=== PATIENT | female | born 1970 | race Caucasian/White ===

== ENCOUNTER 2020-10-20 08:03 | Outpatient (REF) | payer BC, SELFPAY ==
--- NOTE | ~2020-10-20 | US_ITS ---
EXAMINATION: US ABDOMEN COMPLETE CLINICAL INFORMATION: Epigastric pain. COMPARISON: None TECHNIQUE: Real-time imaging of the abdominal viscera. FINDINGS: PANCREAS: No abnormal mass or peripancreatic inflammatory change. ABDOMINAL AORTA: The proximal, mid, and distal segments are normal in caliber. INFERIOR VENA CAVA: Visualized portions are normal. LIVER: The liver contour is normal. Parenchymal echogenicity is normal. No focal hepatic lesion. There is no intrahepatic biliary duct dilatation seen. GALLBLADDER: Normal. The gallbladder is physiologically distended without evidence of stones, sludge, polyps, wall thickening or pericholecystic fluid. COMMON BILE DUCT: Normal in caliber measuring 0.5 cm in diameter. RIGHT KIDNEY: Normal. No hydronephrosis. No renal calculi or focal parenchymal lesions. The kidney measures 10.3 cm in maximum dimension. LEFT KIDNEY: Normal. No hydronephrosis. No renal calculi or focal parenchymal lesions. The kidney measures 10.7 cm in maximum dimension. SPLEEN: Normal. The spleen measures 9.1 cm in maximum dimension. FREE FLUID: None. US/US abdomen complete IMPRESSION: No significant abnormality identified on abdominal ultrasound study.
== END 2020-10-20 08:04 | disposition home or self-care (01) ==
LOC: HO.US 08:03
PROVIDERS: PCP Family Medicine; Visit Provider Internal Medicine
DX: R10.13 Epigastric pain (principal); R68.81 Early satiety
CPT/HCPCS: 76700

== ENCOUNTER → 2020-11-28 07:57 | Outpatient (REF) | payer BC, SELFPAY ==
--- NOTE | ~2020-11-28 | NM_ITS ---
EXAMINATION: NM RADIONUCLIDE SOLID FOOD GASTRIC EMPTYING 4-HOUR STUDY CLINICAL INFORMATION: Early satiety. COMPARISON: No previous gastric emptying study is available for comparison. TECHNIQUE: A standard meal consisting of 4 oz of Egg Beaters brand tagged with 650 microcuries Tc-99m Sulfur Colloid, 8 oz water and 2 slices of toast with jelly was administered orally to the patient. Images were obtained using a dual head gamma camera in the anterior and posterior projections over of the stomach immediately post ingestion and at hourly intervals up to 3 hours post ingestion. Images were not obtained at 4 hours due to the minimal retention at 3 hours. The anterior and posterior counts at each time interval were averaged using the geometric mean and expressed as percentage of the immediate post ingestion counts. FINDINGS: There is good visualization of activity in the stomach immediately post ingestion. As the study progresses, there is good clearance of activity from the stomach and visualization of progressively increasing small bowel activity. By the end of the study, there is almost no retention noted in the stomach. Retention in the stomach at each time interval was: 1 hour 73% (normal 37%-90%) 2 hours 22% (normal 30%-60%) 3 hours 9% 4 hours (Not Obtained) (normal 0%-10%) NM/NM gastric emptying study IMPRESSION: Normal solid food gastric emptying study.
== END ==
LOC: HO.NUCMED 07:57
PROVIDERS: Visit Provider Internal Medicine
DX: R68.81 Early satiety (principal)
CPT/HCPCS: 78264; A9541

== ENCOUNTER 2020-12-02 07:18 | Day surgery (SDC) | payer BC, SELFPAY ==
--- NOTE | 2020-12-01 09:39 | P.CONAN_ITS ---
Documented by User: Soumya Lai NP 12/01/20 09:40 HPI - Anesthesia Eval Consult details Narrative: 49yo F for Upper Endoscopy [facility] Past Medical History Medical History Hypothyroid IBS (irritable bowel syndrome) Iron deficiency Surgical History Surgical History Hx of colonoscopy Hx of endoscopy Social History Social History Patient Tobacco Use Status: Never used Tobacco Second Hand Smoke Exposure: No Use of substances other than those prescribed or required for medical reasons: No Are you DNR?: No Advance Directives: No Advance Directives Information Provided: Yes Advance Directives on File: No Meds Allergies Allergy/AdvReac Type Severity Reaction Status Date / Time clindamycin Allergy Inflammatio Verified 11/28/20 16:05 n dexamethasone [From TobraDex] Allergy Unknown Verified 11/28/20 16:09 tobramycin [From TobraDex] Allergy Unknown Verified 11/28/20 16:09 penicillin G AdvReac Diarrhea Verified 11/28/20 16:05 Home Medications Medication Instructions Recorded Confirmed Last Taken Type ferrous sulfate 325 mg (65 mg 325 mg PO DAILY 11/28/20 11/28/20 Unknown History iron) tablet (iron) levothyroxine 125 mcg tablet 1 tab PO DAILY 11/28/20 11/28/20 Unknown History (Synthroid) Exam Exam Date and Time: December 01, [id number] Assessment and Plan Assessment Anesthesia Assessment: Chart Reviewed Documented by User: Monika Jackson MD 12/02/20 08:27 [facility] Past Medical History Medical History Hypothyroid IBS (irritable bowel syndrome) Iron deficiency Family History Family history of problems with anesthesia: No Surgical History Surgical History Hx of colonoscopy Hx of endoscopy History of Problems with Anesthesia: No Social History Social History Patient Tobacco Use Status: Never used Tobacco Second Hand Smoke Exposure: No Use of substances other than those prescribed or required for medical reasons: No Are you DNR?: No Advance Directives: No Advance Directives Information Provided: Yes Advance Directives on File: No Meds Allergies Allergy/AdvReac Type Severity Reaction Status Date / Time clindamycin Allergy Inflammatio Verified 11/28/20 16:05 n dexamethasone [From TobraDex] Allergy Unknown Verified 11/28/20 16:09 tobramycin [From TobraDex] Allergy Unknown Verified 11/28/20 16:09 penicillin G AdvReac Diarrhea Verified 11/28/20 16:05 Home Medications Medication Instructions Recorded Confirmed Last Taken Type ferrous sulfate 325 mg (65 mg 325 mg PO DAILY 11/28/20 11/28/20 Unknown History iron) tablet (iron) levothyroxine 125 mcg tablet 1 tab PO DAILY 11/28/20 11/28/20 Unknown History (Synthroid) Exam Height,Weight and Vital Signs: Height 5 ft 3 in Weight 53.977 kg Vital Signs Temp Pulse Resp BP Pulse Ox 12/02/20 07:53 96.9 F 56 16 116/73 100 Airway Mallampati Class: II TM Dist: >3cm Neck ROM: Full Loose/Missing/Broken Teeth: No (Permanent bridge teeth 7&10. Concerned about intubation as teeth are delicate. Informed plan not for intubation but informed staff in room re- bite block) Heart: RRR Lungs: CTAB Assessment and Plan Assessment Anesthesia Assessment: Anesthesia Plan Discussed Final Anesthetic Review Family History of Problems with Anesthesia: No History of Problems with Anesthesia: No NPO: Yes ASA Class: II Final Preanesthetic Review: No Changes in Pt Med Stat, Meds/Allgs Chart Reviewed, Consent Obtained/Reviewed and Anes Risks/Benef Reviewed Patient Risk: Low Procedure Risk: Low Assessment/Block/Sedation in SS: Assess/Block/Sedation- Anesthetic Plan Anesthetic Plan: MAC: Disposition: Standard PACU
--- NOTE | 2020-12-01 13:34 | PC.NURSE ---
Preop called made to pt. while giving pre op instructions patient notified Sara Miranda, her is a teacher and recently was exposed to a covid + patient. was masked and vaccinated but did not state was tested. patient herself was not tested. Dr. Hernandez and Dr. Slater notified of above. per Dr. Slater request patient to be covid tested upon arrival for procedure tomorrow 12/02/20.
[2020-12-02 07:42] VITALS: BMI 21.0
[2020-12-02 07:42] LABS: UPreg QC Valid YES; Urine Pregnancy NEGATIVE (NEGATIVE)
[2020-12-02 07:53] VITALS: BP 116/73; PULSE 56; RESP 16; TEMP 36.1; O2SAT 100
[2020-12-02 07:53] LABS: COVID-19 Test Negative (Negative); IDNOW Serial# 55D5AD1C
[2020-12-02] MEDS: Lactated Ringers 1,000 ML 100 ML IVCONT (08:02)
[2020-12-02 08:58] VITALS: BP 89/53; PULSE 51; RESP 17; TEMP 36.7; O2SAT 100
--- NOTE | 2020-12-02 09:01 | PM.OP ---
Brief Operative Note Date of Service: 12/02/20 Pre-op diagnosis: Abdominal pain Post-op diagnosis: other (Erosive gastritis, Gastric polyps, Hiatal hernia) Procedure: EGD with biopsies Surgeon: Zacarias Slater Anesthesia: MAC Was an Type Casting Machine Operator used for this Procedure?: No Estimated blood loss (mL): 3.0 Pathology: other (A. Descending duodenum B. Gastric antrum C. Gastric polyps D. Proximal stomach) Condition: stable Disposition: PACU
[2020-12-02 09:13] VITALS: BP 102/60; PULSE 58; RESP 18; TEMP 36.7; O2SAT 99
--- NOTE | 2020-12-02 09:41 | OP_ITS ---
SURGEON: Zacarias Slater MD INDICATIONS: The patient presents for evaluation of abdominal discomfort. Full consent has been obtained from her for this, including risks of bleeding and perforation. PREOPERATIVE DIAGNOSIS: Abdominal discomfort. POSTOPERATIVE DIAGNOSIS: Abdominal discomfort, small hiatal hernia, proximal gastritis, proximal gastric polyps, rule out celiac disease, rule out Helicobacter pylori. PROCEDURE PERFORMED: Esophagogastroduodenoscopy with biopsy. ESTIMATED BLOOD LOSS: COMPLICATIONS: ANESTHESIA: Monitored anesthesia care. ASSISTANTS: SPECIMENS: DESCRIPTION OF PROCEDURE: The patient was placed in the left lateral decubitus position. The Olympus video gastroscope was passed in the posterior oropharynx and upper esophagus under direct vision. The scope was passed slowly into the distal esophagus. The gastroesophageal junction appeared normal at 35 cm. There was no sign of any esophagitis or Estevez's esophagus. The scope entered the stomach. There was a small hiatal hernia. The scope was advanced to the pylorus and the duodenum was cannulated in the descending portion. The duodenum including the bulb appeared normal without mass or ulceration. Biopsies were obtained from the descending duodenum. The scope was withdrawn back to the stomach. The gastric antrum and body appeared normal with good peristalsis. Both in the forward viewing and retroflexed position, there was evidence of proximal gastritis with some 10 mm erosions. There was some coffee-ground material as well. There were 2 hyperplastic appearing gastric polyps in the proximal stomach as well. I obtained biopsies from the gastric antrum, the proximal stomach, and from the 2 gastric polyps. The scope was then withdrawn back to the esophagus. The esophageal mucosa appeared normal. The scope was withdrawn from the patient. She tolerated the procedure well and was returned to recovery area in stable condition. IMPRESSION: 1. Proximal erosive gastritis. 2. Small gastric polyps. 3. Rule out Helicobacter pylori. 4. Rule out celiac disease. 5. Small hiatal hernia. PLAN: The results of the biopsy will be checked. She will be given a prescription to use omeprazole 20 mg daily. If Helicobacter pylori is present in the gastric biopsies, we would consider treating that as well. Recent workup with a nuclear medicine gastric emptying study, abdominal ultrasound, and laboratories were all unremarkable. She was advised to see me in 2 to 3 months for a followup visit. This has been discussed with her . She was advised not to use any aspirin and NSAIDs long-term. MD CINDY Ross/BRIANA / [id number]
== END 2020-12-02 09:50 | disposition home or self-care (01) ==
PROVIDERS: Anesthesiology; Nurse Practitioner; PCP Family Medicine; Visit Provider Internal Medicine
PROC: 0DJ08ZZ Inspection of Upper Intestinal Tract, Via Natural or Artificial Opening Endoscopic (ICD-10-PCS; CPT 43235; principal; 2020-12-02 08:20)
DX: R10.13 Epigastric pain (principal); K29.60 Other gastritis without bleeding; K31.7 Polyp of stomach and duodenum; K44.9 Diaphragmatic hernia without obstruction or gangrene; K58.0 Irritable bowel syndrome with diarrhea; Z20.822 Contact with and (suspected) exposure to COVID-19
CPT/HCPCS: 43239; 36415; 81025; 87635; 88305; 88342

== ENCOUNTER 2021-05-01 09:01 | Outpatient (REF) | payer BC, SELFPAY ==
--- NOTE | ~2021-05-01 | CT_ITS ---
EXAMINATION: CT ANGIOGRAM ABDOMEN CLINICAL INFORMATION: Rule out celiac artery compression. Early satiety and epigastric pain. COMPARISON: Ultrasound 10/20/2020. TECHNIQUE: Multiple axial images were obtained through the abdomen following the administration of 80 mL Omnipaque 350 intravenous contrast. Images were reviewed on a dedicated 3-D workstation. This CT examination was performed using dose optimization techniques as appropriate, variously including the following: *Automated exposure control *Adjustment of mA and/or kV according to patient size (this includes techniques or standardized protocols for targeted exams where dose is matched to indication/reason for exam; i.e. extremities or head) *Use of iterative reconstruction technique DLP: 147 mGy-cm FINDINGS: VASCULAR: The descending thoracic aorta is normal in course and caliber. No evidence of dissection or other acute aortic syndrome. The abdominal aorta is normal in course and caliber. No evidence of dissection or other acute aortic syndrome. The celiac trunk is widely patent. No evidence of stenosis, compression, or poststenotic dilation. There is a normal branching pattern and its branch vessels are well opacified. Superior mesenteric artery is widely patent and well opacified. The aortomesenteric angle is 37 degrees and the aortomesenteric distance is 9 mm. The inferior mesenteric artery is well opacified. There is a single renal artery to each kidney. The renal arteries are well opacified. The iliac bifurcation is unremarkable. The right common iliac artery is mildly ectatic and measures up to 1.2 cm in diameter. The bilateral common, internal, and external iliac arteries are widely patent and well opacified. There is an unremarkable appearance of the venous structures for an arterial phase of contrast. NONVASCULAR: There is minimal linear atelectasis at the left base, otherwise the visualized lung bases are clear. No pleural effusion or pleural nodularity is seen. The imaged heart is unremarkable and there is no pericardial effusion. The liver is at the upper limits of normal for size and overall unremarkable in attenuation and contour. No focal lesions are seen. There is no intrahepatic or extrahepatic duct dilation. The gallbladder is unremarkable. Pancreas is unremarkable. Mildly heterogeneous enhancement of the spleen secondary to arterial phase of contrast. The spleen is otherwise unremarkable. Normal appearance of the adrenal glands. The kidneys are normal in size, shape and overall enhancement. No focal lesions, calculi, or hydronephrosis. No hydroureter. Distal esophagus and stomach are unremarkable. The imaged small and large bowel are normal in caliber. No bowel wall inflammatory changes are seen. Appendix is not visualized. No right lower quadrant inflammatory changes. No free intraperitoneal fluid. No significant hernia of the abdominal wall. No abdominopelvic or retroperitoneal lymphadenopathy. No acute or aggressive bony abnormality is seen. CT/CT angio abdomen IMPRESSION: Patent visualized abdominal arterial vasculature. There is no evidence of compression/stenosis of the celiac artery which is normal in caliber. The aortomesenteric angle and aortomesenteric distance are within normal limits. Mildly ectatic right common iliac artery measures up to 1.2 cm. Fleischner guidelines were followed.
[2021-05-01] MEDS: iohexoL 350 MG/ML 100 ML INFUS..BTL IV (09:30)
== END 2021-05-01 09:02 | disposition home or self-care (01) ==
LOC: HO.CT 09:01
PROVIDERS: PCP Family Medicine; Visit Provider Internal Medicine
DX: R10.13 Epigastric pain (principal); R68.81 Early satiety
CPT/HCPCS: 74175; Q9967

== ENCOUNTER 2022-10-31 09:25 | Emergency (ER) | payer OTHER, SELFPAY ==
--- NOTE | ~2022-10-31 | CT_ITS ---
EXAMINATION: CT HEAD WITHOUT CONTRAST CLINICAL INFORMATION: Bilateral hand tingling COMPARISON: None available. TECHNIQUE: Contiguous axial imaging was performed from the skull base to vertex without intravenous administration of contrast. This CT examination was performed using dose optimization techniques as appropriate, variously including the following: *Automated exposure control *Adjustment of mA and/or kV according to patient size (this includes techniques or standardized protocols for targeted exams where dose is matched to indication/reason for exam; i.e. extremities or head) *Use of iterative reconstruction technique DLP: 568 mGy-cm FINDINGS: Sulci and ventricles appear normal. There is no intra or extra-axial fluid collection or hemorrhage, mass, or mass effect. Calvarium is intact. CT/CT head/brain wo IV con IMPRESSION: No acute intracranial pathology.
--- NOTE | ~2022-10-31 | CT_ITS ---
EXAMINATION: CT CERVICAL SPINE WITHOUT CONTRAST CLINICAL INFORMATION: Bilateral hand tingling. COMPARISON: None available. TECHNIQUE: Multiple axial images of the cervical spine were obtained without the administration of intravenous contrast. Coronal and sagittal reformatted images were obtained. This CT examination was performed using dose optimization techniques as appropriate, variously including the following: *Automated exposure control *Adjustment of mA and/or kV according to patient size (this includes techniques or standardized protocols for targeted exams where dose is matched to indication/reason for exam; i.e. extremities or head) *Use of iterative reconstruction technique DLP: 790 mGy-cm FINDINGS: There is straightening of the normal cervical lordosis with normal spinal alignment. Mild degenerative disc disease is seen at C4-5 and C5-6 with disc space narrowing, mild marginal osteophyte formation and mild bilateral neural foraminal narrowing. The vertebral bodies and odontoid processes are intact. The facet joints are unremarkable. The spinous processes are intact. The transverse processes are intact. The cervical soft tissues are unremarkable. No significant lymphadenopathy. The thyroid gland is unremarkable. The visualized lung apices are unremarkable. CT/CT cervical spine wo IV con IMPRESSION: 1. Straightening of the normal cervical lordosis may be secondary to positioning and/or muscle spasm. 2. Mild C4-5 and C5-6 degenerative disc disease without acute abnormality.
[2022-10-31 09:39] VITALS: BP 123/71; PULSE 51; RESP 17; TEMP 35.6; O2SAT 100; BMI 22.6
--- NOTE | 2022-10-31 09:47 | ECG_ITS ---
Test Reason : numbness in left arm/hand Blood Pressure : / mmHG Vent. Rate : 055 BPM Atrial Rate : 055 BPM P-R Int : 098 ms QRS Dur : 080 ms QT Int : 418 ms P-R-T Axes : 000 057 053 degrees QTc Int : 399 ms Sinus bradycardia with short AK Otherwise normal ECG No previous ECGs available Referred By: Generic ED Physician Electronically Signed By:RODRI QUINN
[2022-10-31 09:59] LABS: MANUAL DIFF FLAG NO
--- NOTE | 2022-10-31 10:02 | PC.NURSE ---
NEURO'S WITHIN NORMAL LIMITS.
[2022-10-31 10:04] LABS: Basophils Percent Auto 0.5 % (0-2); Eosinophils Absolute Auto 0.1 X10*3/uL (0.0-0.4); Eosinophils Percent Auto 1.1 % (0-4); Hematocrit 39.5 % (37.0-47.0); Hemoglobin 12.7 g/dl (12.0-16.0); Imm Gran Abs Auto 0.01 X10*3/uL (0.00-0.03); Imm Gran Pct Auto 0.2 % (0.0-0.4); Lymphocytes Absolute Auto 1.6 X10*3/uL (1.2-4.9); Lymphocytes Percent Auto 27.9 % (20-40); Mean Corpuscular HGB Conc 32.2 g/dl (31.0-35.0); Mean Corpuscular Hemoglobin 30.5 pg (27.0-33.0); Mean Platelet Volume 13.3 fL (9.4-12.3); Monocytes Absolute Auto 0.4 X10*3/uL (0.1-1.2); Monocytes Percent Auto 7.9 % (2-11); Neutrophils Absolute Auto 3.5 x10*3/uL (2.0-8.3); Neutrophils Percent Auto 62.4 % (45-73); Platelet Count 134 X10*3/uL (160-400); Red Blood Count 4.16 X10*6/uL (4.20-5.50); Red Cell Distribution Width 12.6 % (11.0-16.0); White Blood Count 5.6 X10*3/uL (4.8-10.8)
[2022-10-31 10:19] LABS: Anion Gap 14 (12-20); Blood Urea Nitrogen 15 mg/dL (9-16); Calcium 9.7 mg/dL (8.4-10.2); Carbon Dioxide 24 mmol/L (22-29); Chloride 110 mmol/L (96-108); Creatinine Clr Calc Pharmacy 68.8; Estimated Glomerular Filt Rate > 60; Glucose Random 87 mg/dL (60-115); Potassium 3.9 mmol/L (3.3-5.1); Sodium 144 mmol/L (135-145)
[2022-10-31 10:29] LABS: Troponin-I High Sensitivity < 2.7 ng/L (<3.5-17.0)
--- NOTE | 2022-10-31 13:46 | ED_ITS ---
HPI - Neuro Symptoms/Deficit General Chief Complaint: Neuro Symptoms/Deficit Stated Complaint: tingling, numb hand Time Seen by Provider: 10/31/22 13:37 Source: patient, RN notes reviewed and old records reviewed Mode of arrival: ambulatory History of Present Illness HPI Narrative: 51-year-old female with a past medical history of iron deficiency, IBS, hypothyroid, presenting to the ED complaining of numbness /tingling to right 4th-5th digits since waking yesterday which progressed to left 1st-2nd digits with radiation up LUE today upon waking. Sx have improved since onset. Describes paresthesias today as left arm feeling different than contralateral side. admits to a lot of computer work/typing at work. Denies headache, neck /back pain, vision change/ loss, weakness, CP/SOB. Denies taking anticoagulation Onset (ago): day(s) Related Data Home Medications Medication Instructions Recorded Confirmed ferrous sulfate 325 mg (65 mg 325 mg PO DAILY 11/28/20 11/28/20 iron) tablet (iron) levothyroxine 125 mcg tablet 1 tab PO DAILY 11/28/20 11/28/20 (Synthroid) Allergies Allergy/AdvReac Type Severity Reaction Status Date / Time clindamycin Allergy Inflammatio Verified 11/28/20 16:05 n dexamethasone [From TobraDex] Allergy Unknown Verified 11/28/20 16:09 tobramycin [From TobraDex] Allergy Unknown Verified 11/28/20 16:09 penicillin G AdvReac Diarrhea Verified 11/28/20 16:05 Review of Systems Review of Systems: Constitutional: No Fever, No Chills, No Fatigue, No Malaise ENT/Mouth: No Ear Pain, No Nasal Congestion, No sore throat, No Rhinorrhea, No Swallowing Difficulty Eyes: No Eye Pain, No Swelling, No Redness, No Vision Changes Cardiovascular: No Chest Pain, No SOB, No Edema, No Palpitations Respiratory: No Cough, No Sputum, No Dyspnea Gastrointestinal: No Nausea, No Vomiting, No Abdominal pain Musculoskeletal: No joint pain, No Myalgias, No Joint Swelling Skin: No Skin Lesions, No rash Neuro: No Weakness, + Numbness, + Paresthesias, No Loss of Consciousness, No Dizziness, No Headache Yes all other systems are reviewed and are negative Constitutional: Constitutional: Reports as per HPI Neurologic: Denies Sensory deficit (Neuro) PMFSH Past Medical History Attestation statement: The following information was validated with the patient. Source: old records reviewed Medical History Hypothyroid IBS (irritable bowel syndrome) Iron deficiency Surgical History Hx of colonoscopy Hx of endoscopy Social History Social History Patient Tobacco Use Status: Never used Tobacco Second Hand Smoke Exposure: No Advance Directives: No Physical Exam Vital Signs: Vital Signs: Last Vital Signs Temp 96.0 F L 10/31/22 09:39 Pulse 51 10/31/22 15:40 Resp 18 10/31/22 15:40 BP 121/79 10/31/22 15:40 Pulse Ox 99 10/31/22 15:40 O2 Del Method Room Air 10/31/22 15:40 BMI result Body Mass Index 22.6 Const: General: cooperative, healthy appearing, no acute distress, alert and awake Orientation/consciousness: patient oriented x3 Limitations: no limitations HEENT: Head: Yes normal to inspection and Yes atraumatic Ears: hearing grossly normal bilaterally General nose exam: Normal external nose present Face and sinus: Yes normal facial exam Throat: Yes posterior oropharynx normal, Yes tonsils normal and Yes uvula midline Eyes: General: appearance normal, both eyes and all related structures Pupils: Equal, round and reactive pupils present EOM: EOMs intact bilaterally Neck: Neck: Yes normal visual inspection and Yes no meningeal signs Resp: Effort & Inspection: normal respiratory effort and no respiratory distre ss Auscultation: clear to auscultation bilaterally Cardio: Rate: regular rate Heart sounds: S1 normal heart sound present and S2 normal heart sound present Peripheral pulses: radial pulses present and ulnar radial pulses present Back/Spine/Pelvis: Other: No midline cervical/thoracic/lumbar spinous tenderness/step-off or deformity Skin: Rashes: no rashes Wounds: no wounds Neuro: General: patient oriented x3, gait normal, tone normal, moves all extr emities, no meningeal signs, no focal motor deficits and CN's II-XI intact bilaterally Cranial nerves: Yes CN's II-XII intact bilaterally and Yes Equal, round and reactive pupils present Cognition (Neuro): normal cognition Gait exam (Neuro): Normal gait present Motor exam (neuro): 5/5 motor strength present throughout, Pronator motor function not present and no tremor noted Sensory Exam: No Sensory deficit (Neuro) Extrem: Other: no appreciable wrist/ hand abnormality/ discoloration, cap refill WNL, neurovascularly intact. Strength intact. + Phalen's sign to LUE. Negative Tinel's sign General: Yes normal to inspection Course Course Course Narrative: - Labs reassuring CT head/brain wo IV con IMPRESSION: No acute intracranial pathology. CT cervical spine wo IV con IMPRESSION: 1.? Straightening of the normal cervical lordosis may be secondary to positioning and/or muscle spasm. 2.? Mild C4-5 and C5-6 degenerative disc disease without acute abnormality. ? > results discussed with patient including recommended follow-up with PCP and Orthopedics. Supplied with wrist splints Medical Decision Making Medical Decision Making [facility] Narrative: 51-year-old female with a past medical history of iron deficiency, IBS, hypothyroid, presenting to the ED complaining of numbness /tingling to right 4th-5th digits since waking yesterday which progressed to left 1st-2nd digits with radiation up LUE today upon waking. on exam vital signs stable, NAD, nontoxic appearing, no midline spinous tenderness throughout, neurovascularly intact, pulses intact to all extremities. No focal neuro deficits or deform ities. Strength intact. NIHSS=0. Concern for carpal tunnel syndrome vs paresthesias/radiculopathy vs cubital tunnel syndrome vs metabolic abnormalities. lower suspicion for cervical dissection, CVA/TIA with bilateral symptoms/intermittent. lower suspicion for ACS. No evidence of infection or compartment syndrome plan: EKG, Labs, head/ C-spine CT Please refer to course for remaining clinical decision making, interpretation of labs/imaging results, and discussions with consultants and/or family members. Differential Diagnosis Differential Diagnoses: The differential diagnosis associated with the presentation includes As above Admission/Observation Consideration of admission/observation: Escalation of care including admission/observation considered Lab Data [facility] Lab Attestation statement: I reviewed the patient's lab results. 10/31/22 09:52 10/31/22 09:52 Labs: Lab Results 10/31/22 10/31/22 10/31/22 Range/Units 09:52 09:52 09:52 WBC 5.6 (4.8-10.8) X10*3/uL RBC 4.16 L (4.20-5.50) X10*6/uL Hgb 12.7 (12.0-16.0) g/dl Hct 39.5 (37.0-47.0) % MCV 95.0 (80.0-98.0) fL MCH 30.5 (27.0-33.0) pg MCHC 32.2 (31.0-35.0) g/dl RDW 12.6 (11.0-16.0) % Plt Count 134 L (160-400) X10*3/uL MPV 13.3 H (9.4-12.3) fL Immature Gran % (Auto) 0.2 (0.0-0.4) % Neut % (Auto) 62.4 (45-73) % Lymph % (Auto) 27.9 (20-40) % Ogle % (Auto) 7.9 (2-11) % Eos % (Auto) 1.1 (0-4) % Baso % (Auto) 0.5 (0-2) % Lymph # (Auto) 1.6 (1.2-4.9) X10*3/uL Ogle # (Auto) 0.4 (0.1-1.2) X10*3/uL Eos # (Auto) 0.1 (0.0-0.4) X10*3/uL Baso # (Auto) 0.0 (0.0-0.2) X10*3/uL Abs Immat Gran (auto) 0.01 (0.00-0.03) X10*3/uL Absolute Neuts (auto) 3.5 (2.0-8.3) x10*3/uL Absolute Nucleated RBC 0.000 (0.0-0.012) X10*3/uL Nucleated RBC % (auto) 0.0 (0.0-0.2) /100WBC Sodium 144 (135-145) mmol/L Potassium 3.9 (3.3-5.1) mmol/L Chloride 110 H (96-108) mmol/L Carbon Dioxide 24 (22-29) mmol/L Anion Gap 14 (12-20) BUN 15 (9-16) mg/dL Creatinine 0.80 (0.5-1.4) mg/dL Estim Creat Clear Calc 68.8 Estimated GFR > 60 Random Glucose 87 (60-115) mg/dL Calcium 9.7 (8.4-10.2) mg/dL Magnesium 2.3 (1.6-2.6) mg/dL Total Bilirubin 0.3 (0.0-1.0) mg/dL Direct Bilirubin 0.1 (0.0-0.5) mg/dL AST 21 (5-31) U/L ALT 14 (0-31) U/L Alkaline Phosphatase 75 (39-117) U/L Troponin I High Sens < 2.7 (<3.5-17.0) ng/L Total Protein 6.6 (6.5-8.0) g/dL Albumin 4.1 (3.5-5.0) g/dL Vitamin B12 (200-900) pg/mL Folate (> or = 4.0) ng/mL 10/31/22 Range/Units 15:07 WBC (4.8-10.8) X10*3/uL RBC (4.20-5.50) X10*6/uL Hgb (12.0-16.0) g/dl Hct (37.0-47.0) % MCV (80.0-98.0) fL MCH (27.0-33.0) pg MCHC (31.0-35.0) g/dl RDW (11.0-16.0) % Plt Count (160-400) X10*3/uL MPV (9.4-12.3) fL Immature Gran % (Auto) (0.0-0.4) % Neut % (Auto) (45-73) % Lymph % (Auto) (20-40) % Ogle % (Auto) (2-11) % Eos % (Auto) (0-4) % Baso % (Auto) (0-2) % Lymph # (Auto) (1.2-4.9) X10*3/uL Ogle # (Auto) (0.1-1.2) X10*3/uL Eos # (Auto) (0.0-0.4) X10*3/uL Baso # (Auto) (0.0-0.2) X10*3/uL Abs Immat Gran (auto) (0.00-0.03) X10*3/uL Absolute Neuts (auto) (2.0-8.3) x10*3/uL Absolute Nucleated RBC (0.0-0.012) X10*3/uL Nucleated RBC % (auto) (0.0-0.2) /100WBC Sodium (135-145) mmol/L Potassium (3.3-5.1) mmol/L Chloride (96-108) mmol/L Carbon Dioxide (22-29) mmol/L Anion Gap (12-20) BUN (9-16) mg/dL Creatinine (0.5-1.4) mg/dL Estim Creat Clear Calc Estimated GFR Random Glucose (60-115) mg/dL Calcium (8.4-10.2) mg/dL Magnesium (1.6-2.6) mg/dL Total Bilirubin (0.0-1.0) mg/dL Direct Bilirubin (0.0-0.5) mg/dL AST (5-31) U/L ALT (0-31) U/L Alkaline Phosphatase (39-117) U/L Troponin I High Sens (<3.5-17.0) ng/L Total Protein (6.5-8.0) g/dL Albumin (3.5-5.0) g/dL Vitamin B12 588 (200-900) pg/mL Folate 11.1 (> or = 4.0) ng/mL Independent Interpretation I performed an independent interpretation of an: EKG ( EKG sinus bradycardia with short IL at a rate of 55. QRS 80. QTC 399. No previous to compare. No STEMI) Radiology Impression Discussion of test interpretation with radiology: I have reviewed the radiologist's reading. External Record Review External record reviewed: Inpatient record, Office record, Outpatient record, Prior outpatient labs, Prior outpatient radiology, Primary care record and Outside ED record Tests considered The following testing was considered but not selected: As above Discharge Plan Discharge Clinical Impression: Paresthesia, Degenerative cervical disc, Carpal tunnel syndrome Patient Disposition: Home, Self-Care Instructions: Paresthesia (ED), Degenerative Disc Disease (ED) Additional Instructions: your blood work is reassuring. Your CT scan shows some degenerative cervical changes meeting arthritis as well as evidence of spasming which could be related to her symptoms We also suspect you have some carpal tunnel syndrome, wear wrist splints at night Follow-up with her primary care doctor as well as Orthopedics as needed Take Tylenol and Motrin If symptoms persist or worsen, become constant/ unbearable you have weakness return to the ED Prescriptions: No Action ferrous sulfate [iron] 325 mg (65 mg iron) Tablet 325 mg PO DAILY levothyroxine [Synthroid] 125 mcg tablet 1 tab PO DAILY Referrals: [facility] [place] [facility] [Provider Group] - 10 days Vandana Zavala MD [Primary Care Provider] - 5 days Interventions: ED Discharge Assessment Last Done: 10/31/22 16:17 Discharge Date/Time: 10/31/22 16:18
[2022-10-31 14:17] LABS: Alanine Aminotransferase 14 U/L (0-31); Albumin Level 4.1 g/dL (3.5-5.0); Alkaline Phosphatase 75 U/L (39-117); Aspartate Amino Transferase 21 U/L (5-31); Bilirubin Direct 0.1 mg/dL (0.0-0.5); Bilirubin Total 0.3 mg/dL (0.0-1.0); Magnesium 2.3 mg/dL (1.6-2.6); Total Protein 6.6 g/dL (6.5-8.0)
--- NOTE | 2022-10-31 15:00 | PC.NURSE ---
Patient presents with left arm numbness. Patient is alert and oriented and is able to move arm without issue. Patient states that she has a small headache but is otherwise well appearing.
[2022-10-31 15:40] VITALS: BP 121/79; PULSE 51; RESP 18; O2SAT 99
[2022-10-31 16:18] LABS: Folate 11.1 ng/mL (> or = 4.0); Vitamin B12 588 pg/mL (200-900)
== END 2022-10-31 16:18 | disposition home or self-care (01) ==
PROVIDERS: Physician Assistant; Emergency Provider Emergency Medicine; PCP Family Medicine
DX: M50.320 Other cervical disc degeneration, mid-cervical region, unspecified level (principal); R20.2 Paresthesia of skin; G56.03 Carpal tunnel syndrome, bilateral upper limbs; R51.9 Headache, unspecified; R00.1 Bradycardia, unspecified; Z79.899 Other long term (current) drug therapy
CPT/HCPCS: 36415; 70450; 72125; 80048; 80076; 82607; 82746; 83735; 84484; 85025; 93005; 99284; 99285

== ENCOUNTER → 2022-10-31 09:47 | Outpatient (BNV) | payer OTHER, SELFPAY | PROVIDERS: Emergency Provider Emergency Medicine; PCP Family Medicine; Visit Provider Internal Medicine | DX: R00.1 Bradycardia, unspecified (principal); R20.2 Paresthesia of skin | CPT/HCPCS: 93010 ==

== ENCOUNTER 2023-03-27 10:10 | Outpatient (REF) | payer OTHER, SELFPAY ==
[2023-03-27 10:32] LABS: MANUAL DIFF FLAG NO
[2023-03-27 11:14] LABS: Basophils Percent Auto 0.8 % (0-2); Eosinophils Percent Auto 0.8 % (0-4); Hematocrit 40.8 % (37.0-47.0); Hemoglobin 13.4 g/dl (12.0-16.0); Imm Gran Abs Auto 0.01 X10*3/uL (0.00-0.03); Imm Gran Pct Auto 0.2 % (0.0-0.4); Lymphocytes Absolute Auto 1.1 X10*3/uL (1.2-4.9); Lymphocytes Percent Auto 21.8 % (20-40); Mean Corpuscular HGB Conc 32.8 g/dl (31.0-35.0); Mean Corpuscular Volume 94.4 fL (80.0-98.0); Mean Platelet Volume 13.6 fL (9.4-12.3); Monocytes Absolute Auto 0.5 X10*3/uL (0.1-1.2); Monocytes Percent Auto 9.2 % (2-11); Neutrophils Absolute Auto 3.4 x10*3/uL (2.0-8.3); Neutrophils Percent Auto 67.2 % (45-73); Platelet Count 152 X10*3/uL (160-400); Red Blood Count 4.32 X10*6/uL (4.20-5.50); Red Cell Distribution Width 12.6 % (11.0-16.0)
[2023-03-27 11:47] LABS: Erythrocyte Sedimentation Rate 4 MM/HR (0-20)
[2023-03-27 11:50] LABS: Alanine Aminotransferase 15 U/L (0-31); Albumin Level 4.3 g/dL (3.5-5.0); Alkaline Phosphatase 96 U/L (39-117); Anion Gap 10 (12-20); Aspartate Amino Transferase 24 U/L (5-31); Bilirubin Direct 0.1 mg/dL (0.0-0.5); Bilirubin Total 0.4 mg/dL (0.0-1.0); Blood Urea Nitrogen 19 mg/dL (9-16); C Reactive Protein 0.24 mg/dL (< or = 0.50); Calcium 9.9 mg/dL (8.4-10.2); Carbon Dioxide 28 mmol/L (22-29); Chloride 108 mmol/L (96-108); Estimated Glomerular Filt Rate > 60; Glucose Random 90 mg/dL (60-115); Potassium 4.4 mmol/L (3.3-5.1); Sodium 142 mmol/L (135-145)
== END 2023-03-27 10:11 | disposition home or self-care (01) ==
LOC: HO.LAB 10:10
PROVIDERS: PCP Family Medicine; Visit Provider Internal Medicine
DX: K62.5 Hemorrhage of anus and rectum (principal); R19.7 Diarrhea, unspecified
CPT/HCPCS: 36415; 80048; 80076; 85025; 85652; 86140

== ENCOUNTER 2023-04-26 08:22 | Outpatient (REF) | payer OTHER, SELFPAY ==
[2023-04-26 09:30] LABS: Leukocytes Stool Qualitative NEGATIVE (NEGATIVE)
[2023-04-26 10:47] LABS: CDiff Gene PCR NEGATIVE (Negative)
[2023-04-26 11:47] LABS: Adenovirus F 40/41 Not Detected (Not Detect.); Astrovirus Not Detected (Not Detect.); Campylobacter Not Detected (Not Detect.); Cryptosporidium Not Detected (Not Detect.); Cyclospora cayetanensis Not Detected (Not Detect.); E. coli EAEC Not Detected (Not Detect.); E. coli EPEC Not Detected (Not Detect.); E. coli ETEC Not Detected (Not Detect.); E. coli STEC Not Detected (Not Detect.); Entamoeba histolytica Not Detected (Not Detect.); Giardia lamblia Not Detected (Not Detect.); Norovirus GI/GII Not Detected (Not Detect.); Plesiomonas shigelloides Not Detected (Not Detect.); Rotavirus A Not Detected (Not Detect.); Salmonella Not Detected (Not Detect.); Sapovirus Not Detected (Not Detect.); Shigella sp./EIEC Not Detected (Not Detect.); Vibrio Not Detected (Not Detect.); Vibrio Cholerae Not Detected (Not Detect.); Yersinia enterocolitica Not Detected (Not Detect.)
[2023-05-02 01:19] LABS: Calprotectin, Fecal 5 mcg/g
== END 2023-04-26 08:23 | disposition home or self-care (01) ==
LOC: HO.LNP 08:22
PROVIDERS: Visit Provider Internal Medicine
DX: K62.5 Hemorrhage of anus and rectum (principal); R19.7 Diarrhea, unspecified
CPT/HCPCS: 83993; 87493; 87507; 89055

== ENCOUNTER 2023-07-26 09:30 | Day surgery (SDC) | payer OTHER, SELFPAY ==
[2023-07-25 07:14] VITALS: BMI 21.4
--- NOTE | 2023-07-25 10:49 | HO.ANESPROP2 ---
HPI - Anesthesia Eval Consult details Narrative: 52yo F for Colonoscopy PMFSH Past Medical History Medical History (Updated 07/26/23 @ 10:37 by Shameka Sandoval, RN) Menopause Hiatal hernia Hypothyroid Iron deficiency IBS (irritable bowel syndrome) Family History Family history of problems with anesthesia: No Surgical History Surgical History Hx of endoscopy Hx of colonoscopy History of Problems with Anesthesia: No Social History Social History Alcohol intake: never Patient Tobacco Use Status: Never used Tobacco Second Hand Smoke Exposure: No Are you DNR?: No Advance Directives: No Advance Directives Information Provided: Yes Nutrition Risks: No Nutritional Risk Patient : No FDLMP: 5 years ago Meds Allergies Allergy/AdvReac Type Severity Reaction Status Date / Time clindamycin Allergy Inflammatio Verified 07/26/23 10:11 n dexamethasone [From TobraDex] Allergy Unknown Verified 07/26/23 10:11 Iodinated Contrast Media Allergy Unknown Verified 07/26/23 10:11 [Contrast Dye] tobramycin [From TobraDex] Allergy Unknown Verified 07/26/23 10:11 penicillin G AdvReac Diarrhea Verified 07/26/23 10:11 Home Medications ?Medication ?Instructions ?Recorded ?Confirmed ?Last Taken ?Type levothyroxine 125 mcg tablet 1 tab PO DAILY 11/28/20 07/25/23 12/02/20 History (Synthroid) Exam Height,Weight and Vital Signs: Height 5 ft 3 in Weight 54.885 kg Assessment and Plan Assessment Anesthesia Assessment: Chart Reviewed Final Anesthetic Review Family History of Problems with Anesthesia: No History of Problems with Anesthesia: No
[2023-07-26 09:54] VITALS: BMI 21.4
[2023-07-26] MEDS: Lactated Ringers 1,000 ML 100 ML IVCONT (10:04)
--- NOTE | 2023-07-26 10:09 | HO.ANESPROP2 ---
[facility] Past Medical History Medical History Hiatal hernia Hypothyroid Iron deficiency IBS (irritable bowel syndrome) Functional capacity: independent ambulation Patient : No Family History Family history of problems with anesthesia: No Surgical History Surgical History Hx of endoscopy Hx of colonoscopy History of Problems with Anesthesia: No Social History Social History Alcohol intake: never Patient Tobacco Use Status: Never used Tobacco Second Hand Smoke Exposure: No Are you DNR?: No Advance Directives: No Advance Directives Information Provided: Yes Nutrition Risks: No Nutritional Risk FDLMP: 5 years ago Meds Allergies Allergy/AdvReac Type Severity Reaction Status Date / Time clindamycin Allergy Inflammatio Verified 11/28/20 16:05 n dexamethasone [From TobraDex] Allergy Unknown Verified 11/28/20 16:09 Iodinated Contrast Media Allergy Unknown Verified 07/25/23 07:12 [Contrast Dye] tobramycin [From TobraDex] Allergy Unknown Verified 11/28/20 16:09 penicillin G AdvReac Diarrhea Verified 11/28/20 16:05 Active Medications: Current Medications Lactated Ringer's (Lr) 1,000 mls @ 100 mls/hr IVCONT .Q10H QIAN Last Admin: 07/26/23 10:04 Dose: 100 mls/hr Sodium Biphosphate/Sodium Phosphate (Sodium Phosphate,[place]-Dibasic 133 Ml Enema) 133 ml NE ONCE PRN PRN Reason: Poor Colonoscopy Prep Results Home Medications ?Medication ?Instructions ?Recorded ?Confirmed ?Last Taken ?Type levothyroxine 125 mcg tablet 1 tab PO DAILY 11/28/20 07/25/23 12/02/20 History (Synthroid) Exam Height,Weight and Vital Signs: Height 5 ft 3 in Weight 54.885 kg Airway Mallampati Class: II TM Dist: >3cm Neck ROM: Full Heart: RRR Lungs: CTA Assessment and Plan Assessment Anesthesia Assessment: Anesthesia Plan Discussed Final Anesthetic Review Family History of Problems with Anesthesia: No History of Problems with Anesthesia: No NPO: Yes ASA Class: II Final Preanesthetic Review: Meds/Allgs Chart Reviewed, Consent Obtained/Reviewed and Anes Risks/Benef Reviewed Patient Risk: Low Procedure Risk: Low Anesthetic Plan Anesthetic Plan: MAC: Disposition: Standard PACU
[2023-07-26 10:11] VITALS: BP 117/71; PULSE 58; RESP 18; TEMP 36.7; O2SAT 100
[2023-07-26 11:32] VITALS: BP 102/62; PULSE 52; RESP 16; TEMP 36.4; O2SAT 99
--- NOTE | 2023-07-26 11:32 | P.BOP_ITS ---
Brief Operative Note Date of Service: 07/26/23 Pre-op diagnosis: Rectal bleeding, diarrhea Post-op diagnosis: other (Internal hemorrhoids) Procedure: Colonoscopy to the cecum and TI with biopsies Surgeon: Zacarias Slater MD Anesthesia: MAC Was an [employer] used for this Procedure?: No Estimated blood loss (mL): 2.0 Pathology: other (A. Ascending colon B. Terminal ileum C. Descending colon) Condition: stable Disposition: PACU
[2023-07-26 11:47] VITALS: BP 102/62; PULSE 50; RESP 16; O2SAT 99
--- NOTE | 2023-07-26 11:51 | OP_ITS ---
DATE OF SERVICE: 07/26/2023 SURGEON: Zacarias Slater MD INDICATIONS: The patient presents for evaluation of intermittent hematochezia and diarrhea. Full consent has been obtained from her for this, including risks of bleeding and perforation. PREOPERATIVE DIAGNOSIS: POSTOPERATIVE DIAGNOSIS: PROCEDURE PERFORMED: Colonoscopy to the cecum and terminal ileum with biopsies. ESTIMATED BLOOD LOSS: COMPLICATIONS: ANESTHESIA: Monitored anesthesia care. ASSISTANTS: SPECIMENS: PREOPERATIVE DIAGNOSES: Diarrhea and hematochezia. POSTOPERATIVE DIAGNOSES: Diarrhea, hematochezia, internal hemorrhoids, and rule out microscopic colitis. DESCRIPTION OF PROCEDURE: The patient was placed in the left lateral decubitus position. The digital rectal exam revealed no abnormalities. The [employer] video pediatric colonoscope was then entered into the rectum and advanced easily to the cecum. Once in the cecum, I did identify normal-appearing cecal pouch with appendiceal orifice and a normal-appearing ileocecal valve. The terminal ileum was cannulated and appeared normal. Biopsies were obtained. There was no sign of any ileitis. The scope was withdrawn back in the colon. The entire cecum and ileocecal valve appeared normal. The scope was slowly withdrawn assessing all mucosal surfaces carefully. Preparation was excellent. I did not visualize any sign of polyps, colitis, nor angiodysplasia. Random biopsies were obtained in the ascending and descending colon. I did not appreciate any significant diverticular disease. In the rectum, the scope was retroflexed visualizing internal hemorrhoids, but no other pathology. The rectal mucosa appeared normal. The scope was straightened and withdrawn from the patient. She tolerated the procedure well and was returned to the recovery area in stable condition. IMPRESSION: 1. Internal hemorrhoids. 2. Rule out microscopic colitis. PLAN: The results of the biopsies will be checked. She did try cholestyramine recently and that did not help her, so she subsequently stopped it. She did try to titrate the dose, but without much benefit. At this point, I advised her to try using some Imodium regularly on a daily basis each morning and later in the day to try to prevent diarrhea as opposed to just using the Imodium p.r.n. She will see me in the Fall for a followup visit. She was advised not to use any aspirin and NSAIDs for 1 week. She was advised to have a repeat screening colonoscopy in 10 years. MD CINDY Ross/BRIANA / [id number]
[2023-07-26 12:02] VITALS: BP 114/73; PULSE 48; RESP 16; TEMP 36.1; O2SAT 100
== END 2023-07-26 12:40 | disposition home or self-care (01) ==
PROVIDERS: PCP Family Medicine; Visit Provider Internal Medicine
PROC: 0DJD8ZZ Inspection of Lower Intestinal Tract, Via Natural or Artificial Opening Endoscopic (ICD-10-PCS; CPT 45378; principal; 2023-07-26 11:10)
DX: K62.5 Hemorrhage of anus and rectum (principal); K58.0 Irritable bowel syndrome with diarrhea; K64.8 Other hemorrhoids; E03.9 Hypothyroidism, unspecified; E61.1 Iron deficiency; Z79.899 Other long term (current) drug therapy; Z88.0 Allergy status to penicillin; Z88.1 Allergy status to other antibiotic agents; Z91.041 Radiographic dye allergy status
CPT/HCPCS: 45380; 88305; J2704

== ENCOUNTER 2024-04-13 08:42 | Emergency (ER) | payer OTHER, SELFPAY ==
--- NOTE | ~2024-04-13 | US_ITS ---
EXAMINATION: US ABDOMEN LIMITED CLINICAL INFORMATION: Right upper quadrant pain.. COMPARISON: 10/20/2020. Correlation made with CT angiography of the abdomen 05/01/2021. TECHNIQUE: Real-time imaging of the right upper quadrant abdominal viscera. FINDINGS: PANCREAS: Visualized portions are unremarkable. LIVER: The liver is normal in size. The liver contour is normal. Parenchymal echogenicity is normal. No focal hepatic lesion. There is no intrahepatic biliary duct dilatation seen. GALLBLADDER: The gallbladder is physiologically distended without evidence of stones, sludge, polyps, wall thickening or pericholecystic fluid. Negative sonographic Giron's sign. COMMON BILE DUCT: Normal in caliber measuring 0.5 cm in diameter. RIGHT KIDNEY: No hydronephrosis. No renal calculi or focal parenchymal lesions. The kidney measures 9.4 cm in maximum dimension. FREE FLUID: None. US/US abdomen limited IMPRESSION: Normal right upper quadrant ultrasound. Electronically signed by: Jaswinder Bell MD 04/13/2024 03:32 PM [facility] [place]
--- NOTE | ~2024-04-13 | XR_ITS ---
CLINICAL HISTORY: Pneumonia? 2 view chest x-ray Comparison: None Findings: No consolidation or effusion. Normal size heart. No acute fracture. IMPRESSION: 1. No acute findings. This document has been electronically signed by: Danya Padilla MD on 04/13/2024 17:59:47
[2024-04-13 09:02] VITALS: BP 125/73; PULSE 61; RESP 16; TEMP 36; O2SAT 98; BMI 22.1
--- NOTE | 2024-04-13 14:20 | ED_ITS ---
HPI - General Adult General Chief complaint: Abdominal Pain Stated complaint: R side abd pain Time Seen by Provider: 04/13/24 16:29 Source: patient Mode of arrival: ambulatory Limitations: no limitations History of Present Illness ED Provider: Eddie Pradhan HPI narrative: 53-year-old female history of IBS, hypothyroidism, iron deficiency presents to ED for right upper quadrant abdominal pain for 1 week that is worse on movement of torso and upper extremities. Patient denies any chest pain, shortness of breath, recent trauma, fever, chills, leg swelling, calf pain, or coughing up blood Related Data Home Medications ?Medication ?Instructions ?Recorded ?Confirmed levothyroxine 125 mcg tablet 1 tab PO DAILY 11/28/20 07/25/23 (Synthroid) Previous Rx's ?Medication ?Instructions ?Recorded naproxen 500 mg tablet 500 mg PO BID PRN pain 7 days #14 04/13/24 tabs Allergies Allergy/AdvReac Type Severity Reaction Status Date / Time clindamycin Allergy Inflammatio Verified 04/13/24 09:05 n dexamethasone [From TobraDex] Allergy Unknown Verified 04/13/24 09:05 Iodinated Contrast Media Allergy Unknown Verified 04/13/24 09:05 [Contrast Dye] tobramycin [From TobraDex] Allergy Unknown Verified 04/13/24 09:05 penicillin G AdvReac Diarrhea Verified 04/13/24 09:05 Review of Systems 2 Review of Systems: RUQ pain worse on movement Yes all other systems are reviewed and are negative PMFSH Past Medical History Medical History (Updated 04/13/24 @ 18:37 by FANG Encarnacion) Menopause Hiatal hernia Hypothyroid Iron deficiency IBS (irritable bowel syndrome) Surgical History Hx of endoscopy Hx of colonoscopy Social History Social History Alcohol intake: never Patient Tobacco Use Status: Never used Tobacco Second Hand Smoke Exposure: No Advance Directives: No Advance Directives Information Provided: Yes Do you have a plan to hurt others: No Plan Physical Exam ED Vital Signs: Vital Signs - 24 hr 04/13/24 09:02 04/13/24 18:51 Temperature 96.8 F 97.9 F Pulse Rate 61 60 Respiratory Rate 16 16 Blood Pressure 125/73 129/78 Pulse Oximetry 98 100 Oxygen Delivery Method Room Air Room Air BMI result Body Mass Index 22.1 Const General: cooperative, healthy appearing, comfortable, no acute distress, well developed, alert, awake and Physically active Orientation/consciousness: patient oriented x3 [facility] Head: Yes normal to inspection, Yes No palpable skull fracture present, Yes normocephalic and Yes atraumatic Eyes General: appearance normal, both eyes and all related structures Neck Neck: Yes normal visual inspection, Yes full ROM, Yes no lymphadenopathy, Yes no meningeal signs, Yes trachea midline and Yes supple Chest Chest palpation & inspection: normal inspection of the chest and normal palpation of entire chest wall Chest/axillae images: 2 1. Slight tenderness on palpation. Negative for rash, ecchymosis, crepitus, or deformity Resp Effort & Inspection: normal respiratory effort and able to speak in complete sentences Auscultation: clear to auscultation bilaterally Cardio Jugular venous distension: no JVD Heart sounds: S1 normal heart sound present and S2 normal heart sound present GI Inspection: Yes normal to inspection Palpation (GI): Soft to palpation, not firm, nontender, no guarding and not rigid General: Yes no CVA tenderness Back/Spine/Pelvis Back: no CVA tenderness and No back tenderness Skin General skin exam: no rashes or lesions noted, elasticity normal and turgor normal Neuro General: patient oriented x3, gait normal, tone normal, moves all extremities, Normal light touch and pain sensation, no meningeal signs, no focal motor deficits, CN's II-XI intact bilaterally and normal sensation to monofilament Extrem Other: Bilateral lower extremity negative for swelling, pitting edema, or calf tenderness General: Yes normal to inspection, Yes full ROM and Yes capillary refill normal Psych Appearance: grossly normal, well kempt and not disheveled Medical Decision Making Medical Decision Making MDM Narrative: 53-year-old female presents to ED for right upper quadrant abdominal pain that is worse on movement of torso and extremities. Patient denies any trauma, recent surgery, recent long travel, leg swelling, calf pain, or coughing up blood. Initial labs normal. Abdominal ultrasound negative for cholecystitis. Abdomen is soft benign nontender. Was sent D-dimer to make sure not risk of PE. 17:12: D-dimer 168 which makes it negative. Upper normal limits 240. Well's Criteria score 0. Pending chest x-ray make sure there is no walking pneumonia pneumothorax hemothorax. UA pending 6:13pm: Chest x-ray came back negative for pneumonia. UA negative for UTI. Patient presently well-appearing not in any distress. Negative for any abdominal tenderness, nausea or vomiting during ED visit. Presently not suspecting myocardial infarction, peritonitis, pancreatitis, hemothorax, pneumothorax, myocarditis, pericarditis, PE, cHF, abdominal perforation, kidney stones, pyelonephritis, ovarian torsion, ovarian rupture, or any other life- threatening etiology. Patient given copy of labs of imaging. Patient explained worrisome signs and informed to return to the ED immediately. Differential Diagnosis Differential Diagnoses: The differential diagnosis associated with the presentation includes (Cholecystitis, GERD) Admission/Observation Consideration of admission/observation: Escalation of care including admission/observation considered Lab Data MDM Lab Attestation statement: I reviewed the patient's lab results. 04/13/24 14:33 04/13/24 14:33 Labs: Lab Results 04/13/24 04/13/24 Range/Units 14:33 17:15 WBC 4.6 L (4.8-10.8) X10*3/uL RBC 4.42 (4.20-5.50) X10*6/uL Hgb 13.7 (12.0-16.0) g/dl Hct 41.0 (37.0-47.0) % MCV 92.8 (80.0-98.0) fL MCH 31.0 (27.0-33.0) pg MCHC 33.4 (31.0-35.0) g/dl RDW 13.0 (11.0-16.0) % Plt Count 157 L (160-400) X10*3/uL MPV 12.1 (9.4-12.3) fL Immature Gran % (Auto) 0.2 (0.0-0.4) % Neut % (Auto) 64.2 (45-73) % Lymph % (Auto) 25.9 (20-40) % Stark % (Auto) 7.8 (2-11) % Eos % (Auto) 1.3 (0-4) % Baso % (Auto) 0.6 (0-2) % Lymph # (Auto) 1.2 (1.2-4.9) X10*3/uL Stark # (Auto) 0.4 (0.1-1.2) X10*3/uL Eos # (Auto) 0.1 (0.0-0.4) X10*3/uL Baso # (Auto) 0.0 (0.0-0.2) X10*3/uL Abs Immat Gran (auto) 0.01 (0.00-0.03) X10*3/uL Absolute Neuts (auto) 3.0 (2.0-8.3) x10*3/uL Absolute Nucleated RBC 0.000 (0.0-0.012) X10*3/uL Nucleated RBC % (auto) 0.0 (0.0-0.2) /100WBC PT 11.9 (10.9-12.4) SEC INR 1.0 (0.9-1.1) D-Dimer High Sensitivty 168 NG/ML Sodium 142 (135-145) mmol/L Potassium 3.9 (3.3-5.1) mmol/L Chloride 109 H (96-108) mmol/L Carbon Dioxide 29 (22-29) mmol/L Anion Gap 8 L (12-20) BUN 14 (9-16) mg/dL Creatinine 0.76 (0.5-1.4) mg/dL Estim Creat Clear Calc 70.8 Estimated GFR > 60 Random Glucose 154 H (60-115) mg/dL Calcium 9.5 (8.4-10.2) mg/dL Total Bilirubin 0.3 (0.0-1.0) mg/dL AST 30 (5-31) U/L ALT 24 (0-31) U/L Alkaline Phosphatase 105 (39-117) U/L Total Protein 7.3 (6.5-8.0) g/dL Albumin 4.4 (3.5-5.0) g/dL Lipase 27 (8-78) U/L Urine Color Yellow Urine Appearance Clear Urine pH 5.5 (5.0-9.0) Ur Specific [place] 1.015 (1.005-1.025) Urine Protein Negative (Neg-Trace) mg/dL Urine Glucose (UA) Negative (Negative) mg/dL Urine Ketones Negative (Negative) mg/dL Urine Blood Negative (Negative) Urine Nitrite Negative (Negative) Ur Leukocyte Esterase Negative (Negative) Urine Test NEGATIVE (NEGATIVE) Influenza Type A (PCR) NEGATIVE (Negative) Influenza Type B (PCR) NEGATIVE (Negative) RSV RNA Qual (PCR) NEGATIVE (Negative) SARS-CoV-2 RNA (RT-PCR) NEGATIVE (Negative) Independent Interpretation I performed an independent interpretation of an: Plain X-Ray Radiology Impression Discussion of test interpretation with radiology: I have reviewed the radiologist's reading. Independent Historian Clinical information obtained from an independent historian. History obtained from or confirmed by: Other (patient) Prescription Management I considered prescription management with: Pain Medication Discharge Plan Discharge Clinical Impression: Abdominal pain Patient Disposition: Home, Self-Care Instructions: Abdominal Pain (ED) Additional Instructions: Your blood work came back reassuring. Ultrasound came back negative for signs of cholecystitis. Recommend follow-up with your primary care provider. Return to the ED immediately for any severe abdominal pain, inability tolerate solid food/liquid, back pain, flank pain, blood in urine, pain on urination, chest pain on inspiration, shortness of breath, chest pain, coughing up blood, fever, chills, weakness, dizziness, vaginal bleeding, rash, or any other concerning symptoms. COMPARISON: 10/20/2020. Correlation made with CT angiography of the abdomen 05/01/2021. TECHNIQUE: Real-time imaging of the right upper quadrant abdominal viscera. FINDINGS: PANCREAS: Visualized portions are unremarkable. LIVER: The liver is normal in size. The liver contour is normal. Parenchymal echogenicity is normal. No focal hepatic lesion. There is no intrahepatic biliary duct dilatation seen. GALLBLADDER: The gallbladder is physiologically distended without evidence of stones, sludge, polyps, wall thickening or pericholecystic fluid. Negative sonographic Giron's sign. COMMON BILE DUCT: Normal in caliber measuring 0.5 cm in diameter. RIGHT KIDNEY: No hydronephrosis. No renal calculi or focal parenchymal lesions. The kidney measures 9.4 cm in maximum dimension. FREE FLUID: None. US/US abdomen limited IMPRESSION: Normal right upper quadrant ultrasound. Electronically signed by: Jaswinder Bell MD 04/13/2024 03:32 PM [facility] Prescriptions: New naproxen 500 mg tablet 500 mg PO BID PRN (Reason: pain) 7 Days Qty: 14 0RF No Action levothyroxine [Synthroid] 125 mcg tablet 1 tab PO DAILY Stand Alone Forms: Work/School Release Interventions: ED Discharge Assessment Last Done: 04/13/24 18:51 Discharge Date/Time: 04/13/24 18:52 Print Language: Chinese
[2024-04-13 14:42] LABS: MANUAL DIFF FLAG NO
[2024-04-13 14:45] LABS: Basophils Percent Auto 0.6 % (0-2); Eosinophils Absolute Auto 0.1 X10*3/uL (0.0-0.4); Eosinophils Percent Auto 1.3 % (0-4); Hemoglobin 13.7 g/dl (12.0-16.0); Imm Gran Abs Auto 0.01 X10*3/uL (0.00-0.03); Imm Gran Pct Auto 0.2 % (0.0-0.4); Lymphocytes Absolute Auto 1.2 X10*3/uL (1.2-4.9); Lymphocytes Percent Auto 25.9 % (20-40); Mean Corpuscular HGB Conc 33.4 g/dl (31.0-35.0); Mean Corpuscular Volume 92.8 fL (80.0-98.0); Mean Platelet Volume 12.1 fL (9.4-12.3); Monocytes Absolute Auto 0.4 X10*3/uL (0.1-1.2); Monocytes Percent Auto 7.8 % (2-11); Neutrophils Percent Auto 64.2 % (45-73); Platelet Count 157 X10*3/uL (160-400); Red Blood Count 4.42 X10*6/uL (4.20-5.50); White Blood Count 4.6 X10*3/uL (4.8-10.8)
[2024-04-13 14:53] LABS: Prothrombin Time 11.9 SEC (10.9-12.4)
[2024-04-13 14:57] LABS: Alanine Aminotransferase 24 U/L (0-31); Albumin Level 4.4 g/dL (3.5-5.0); Alkaline Phosphatase 105 U/L (39-117); Anion Gap 8 (12-20); Aspartate Amino Transferase 30 U/L (5-31); Bilirubin Total 0.3 mg/dL (0.0-1.0); Blood Urea Nitrogen 14 mg/dL (9-16); Calcium 9.5 mg/dL (8.4-10.2); Carbon Dioxide 29 mmol/L (22-29); Chloride 109 mmol/L (96-108); Creatinine Clr Calc Pharmacy 70.8; Estimated Glomerular Filt Rate > 60; Glucose Random 154 mg/dL (60-115); Lipase 27 U/L (8-78); Potassium 3.9 mmol/L (3.3-5.1); Sodium 142 mmol/L (135-145); Total Protein 7.3 g/dL (6.5-8.0)
[2024-04-13 15:30] LABS: Influenza A PCR NEGATIVE (Negative); Influenza B PCR NEGATIVE (Negative); Resp Syncy Virus RNA Qual PCR NEGATIVE (Negative); SARS COV2 PCR INHOUSE NEGATIVE (Negative)
[2024-04-13 16:45] LABS: D Dimer High Sensitivity 168 NG/ML
[2024-04-13 17:24] LABS: Appearance Urine Clear; Color Urine Yellow; Glucose Urine UA Negative (Negative); Leukocyte Esterase Urine Negative (Negative); Nitrite Urine Negative (Negative); PH 5.5 (5.0-9.0); Specific Gravity - Urine 1.015 (1.005-1.025); Urine Blood Negative (Negative); Urine Ketones Negative (Negative); Urine Protein Negative (Neg-Trace)
[2024-04-13 17:50] LABS: UPreg QC Valid YES; Urine Pregnancy NEGATIVE (NEGATIVE)
[2024-04-13 18:51] VITALS: BP 129/78; PULSE 60; RESP 16; TEMP 36.6; O2SAT 100
== END 2024-04-13 18:52 | disposition home or self-care (01) ==
PROVIDERS: Physician Assistant; Registered Nurse Emergency; Emergency Provider Internal Medicine; PCP Family Medicine
DX: R10.11 Right upper quadrant pain (principal); Z03.818 Encounter for observation for suspected exposure to other biological agents ruled out
CPT/HCPCS: 0241U; 71046; 76705; 80053; 81003; 81025; 83690; 85025; 85379; 85610; 99282; 99284

== ENCOUNTER → 2024-04-13 14:20 | Outpatient (BNV) | payer OTHER, SELFPAY | PROVIDERS: PCP Family Medicine; Visit Provider Radiology Diagnostic Radiology | DX: R10.11 Right upper quadrant pain (principal) | CPT/HCPCS: 71046; 76705 ==